=== PATIENT | female | born 1985 | race Caucasian/White ===

== ENCOUNTER 2024-02-01 16:12 | Emergency (ER) | payer BC, MEDICAID ==
[2024-02-01 16:54] LABS: Hematocrit 41.4 % (36.0-47.0); Hemoglobin 13.5 g/dL (12.0-16.0); Mean Corpuscular HGB CONC 32.5 g/dL (32.0-36.0); Mean Corpuscular Hemoglobin 28.3 pg (27.0-31.0); RBC Distribution Width 11.7 % (11.5-14.5); Red Blood Cell (RBC) Count 4.76 mill/uL (4.20-5.40); White Blood Cell (WBC) Count 6.5 10x3/uL (4.8-10.8)
[2024-02-01 16:55] LABS: #Basophils 0.1 thou/uL (0.0-0.2); #Eosinophils 0.1 thou/uL (0.0-0.7); #Lymphocytes 2.1 thou/uL (1.20-3.40); #Monocytes 0.6 thou/uL (0.11-0.59); #Neutrophils 3.8 thou/uL (1.40-6.50); %Basophils 1.3 % (0.0-1.0); %Eosinophils 1.1 % (0.0-10.0); %Lymphocytes 31.4 % (21.0-51.0); %Monocytes 8.5 % (0.0-10.0); %Neutrophils 57.7 % (42.0-75.0); Mean Platelet Volume 7.8 fL (7.4-10.4); Platelet Count 270 10x3/uL (130-400)
[2024-02-01 16:58] LABS: BHCG - Serum Negative (NEGATIVE); Pregs Control Background? CLEAR/WHITE (CLR/WHITE); Pregs Control Bar Appear? YES (CONTROL BAR)
[2024-02-01 17:06] LABS: ALT (SGPT) 10 U/L (8-55); AST (SGOT) 13 U/L (5-34); Albumin 4.1 g/dL (3.5-5.0); Alkaline Phosphatase 51 U/L (40-110); Anion Gap 14 mmol/L (10-20); BUN (Urea Nitrogen) 10 mg/dL (7.0-18.7); Bilirubin, Total 0.8 mg/dL (0.2-1.2); Calc. Creatinine Clearance 0 mL/min (70-130); Calcium 9.3 mg/dL (7.8-10.44); Carbon Dioxide 24 mmol/L (22-29); Chloride 108 mmol/L (98-107); Estimated GFR 104; Globulin 3.2 g/dL (2.4-3.5); Glucose 101 mg/dL (70-105); Potassium 4.3 mmol/L (3.5-5.1); Protein, Total 7.3 g/dL (6.0-8.3); Sodium 142 mmol/L (136-145)
[2024-02-01 17:09] LABS: Troponin I Less than 0.010 ng/mL (< 0.028)
== END 2024-02-01 17:37 | disposition home or self-care (01) ==
LOC: MADERS 16:12
DX: R07.9 Chest pain, unspecified (principal); Z55.6 Problems related to health literacy
CPT/HCPCS: 36415; 80053; 84484; 84703; 85025; 93005; 99285

== ENCOUNTER 2024-04-03 01:15 | Emergency (ER) | payer BC, MEDICAID, OTHER ==
[2024-04-03] MEDS ORDERED: Ketorolac Tromethamine 30 MG (1 mL) VIAL ONE (01:50)
== END 2024-04-03 02:37 | disposition home or self-care (01) ==
LOC: MADERS 01:15
DX: M43.6 Torticollis (principal)
CPT/HCPCS: 93005; 99283; J1885